=== PATIENT | male | born 1965 | race Caucasian/White ===

== ENCOUNTER 2019-11-22 10:44 | Outpatient (CLI) | payer BC, SELFPAY ==
--- NOTE | ~2019-11-22 | CT_ITS ---
EXAMINATION: CT lung screening DATE: 11/22/2019 11:13 INDICATION: Personal history of nicotine dependence, 35 pack year history TECHNIQUE: Computed tomography (CT) of the chest was performed without intravenous contrast. The dose -length product (DLP) was 422.58 mGy-cm. Automated exposure control and iterative reconstruction tech [employer] were employed. COMPARISON: None FINDINGS: There is a 2 mm nodule of the right upper lobe on image 35. There is a 3 mm nodule of the l eft upper lobe on image 64. Also noted is a 3 mm nodule of the left lower lobe on image 84. The lungs are free of acute opacities. There is mild emphysema. No pleural effusion or pneumothorax is identif ied. No pathologically enlarged thoracic lymph nodes are identified. The heart size is normal. Calcif ied coronary artery atherosclerosis is noted. There is mild thoracic spondylosis. Splenomegaly is no arturo. IMPRESSION: 1. Lung-RADS category 2S: Benign appearance or behavior. Continue annual screening with noncontrast l ow-dose chest CT in 12 months. 2. Splenomegaly. Reviewed, dictated and finalized at location B. IMPRESSION: 1. Lung-RADS category 2S: Benign appearance or behavior. Continue annual screen ing with noncontrast low-dose chest CT in 12 months. 2. Splenomegaly.
== END 2019-11-22 10:45 | disposition home or self-care (01) ==
LOC: ANHIMG 10:55
PROVIDERS: PCP Internal Medicine; Visit Provider Nurse Practitioner
DX: Z12.2 Encounter for screening for malignant neoplasm of respiratory organs (principal); F17.219 Nicotine dependence, cigarettes, with unspecified nicotine-induced disorders; R16.1 Splenomegaly, not elsewhere classified
CPT/HCPCS: G0297